=== PATIENT | male | born 1945 | race Caucasian/White ===

== ENCOUNTER 2025-04-16 10:14 | Inpatient (IN) | payer MEDICARE, BC ==
[~2025-04-16] VITALS: Ht 170.2 cm; Wt 63.5 kg
[2025-04-16] MEDS: IV NS 0.9% 1,000 ML BAG IV ONE (10:34)
[2025-04-16 10:50] LABS: PLATELET COUNT (AUTO) 302 K/uL (150-450); RED BLOOD CELL COUNT(AUTO) 5.21 MIL/uL (4.5-6.0); RED CELL DISTRIBUTION WIDTH 13.5 % (11.5-15.0); WHITE BLOOD COUNT (AUTO) 11.8 K/uL (4.3-11.0)
[2025-04-16 10:59] LABS: INR 0.94 (0.91-1.10)
[2025-04-16 11:00] LABS: SERUM AMMONIA 19 umol/L (11-32)
[2025-04-16 11:01] LABS: CALCIUM, SERUM 8.5 mg/dL (8.5-10.1); CREATININE 1.0 mg/dL (0.6-1.3); SODIUM SERUM 133 mmol/L (136-145); UREA NITROGEN, BLOOD 17 mg/dL (7-18)
[2025-04-16 11:07] LABS: ALCOHOL, BLOOD 295 mg/dL (0-10); ASPARTATE AMINOTRANSFERASE 41 U/L (15-37); TOTAL PROTEIN, SERUM 7.3 g/dL (6.4-8.2)
[2025-04-16 11:07] LABS: APPEARANCE,URINE CLEAR (CLEAR); BLOOD, URINE TRACE-INTA Ery/uL (NEGATIVE); LEUKOCYTE ESTERASE ,URINE NEGATIVE (NEGATIVE); NITRITE, URINE NEGATIVE (NEGATIVE); UGLUCOSE NEGATIVE (NEGATIVE)
[2025-04-16 11:11] LABS: ADD URINE CULTURE NO; SQUAMOUS EPITHELIAL CELL,UR Moderate /HPF (None Seen)
[2025-04-16 11:17] LABS: AMPHETAMINE, URINE NEGATIVE (NEGATIVE); BARBITURATE, URINE NEGATIVE (NEGATIVE); BENZODIAZEPINE, URINE NEGATIVE (NEGATIVE); CANNABINOID, URINE NEGATIVE (NEGATIVE); COCCAINE, URINE NEGATIVE (NEGATIVE); OPIATE, URINE NEGATIVE (NEGATIVE)
[2025-04-16] MEDS: HALOPERIDOL LACTATE INJ 5 MG/ML VIAL IM ONE (11:46)
[2025-04-16] MEDS ORDERED: HALOPERIDOL LACTATE INJ 5 MG/ML VIAL ONE (11:46)
[2025-04-16] MEDS ORDERED: LORAZEPAM INJ 2 MG/ML VIAL ONE (12:04)
[2025-04-16] MEDS: LORAZEPAM INJ 2 MG/ML VIAL IM ONE (12:07)
[2025-04-16] MEDS ORDERED: MAG HYDROX/AL HYDROX/SIMETH 30 ML UDC PO PRN (12:30)
[2025-04-16] MEDS ORDERED: Z GUARD REMEDY 4 OZ OINT TP PRN (12:30)
[2025-04-16] MEDS ORDERED: LORAZEPAM INJ 2 MG/ML VIAL IM PRN (12:30)
[2025-04-16] MEDS ORDERED: HALOPERIDOL LACTATE INJ 5 MG/ML VIAL IM ONE (12:30)
[2025-04-16] MEDS ORDERED: MAGNESIUM HYDROXIDE 30 ML UDC PO PRN (12:30)
[2025-04-16] MEDS: CHLORDIAZEPOXIDE HCL 25 MG CAPSULE PO SCH (13:00)
[2025-04-16] MEDS ORDERED: METF-881 PO (14:37)
[2025-04-16] MEDS ORDERED: ROSU10TA29 PO (14:37)
[2025-04-16] MEDS ORDERED: MEMA10TA56 PO (14:37)
[2025-04-16] MEDS ORDERED: FAMO40TA7 PO (14:37)
[2025-04-16] MEDS ORDERED: DULO20CA19 PO (14:37)
[2025-04-16] MEDS ORDERED: ESCI20TA PO (14:37)
[2025-04-16] MEDS ORDERED: MELA2.5T PO (14:37)
[2025-04-16] MEDS ORDERED: IBUP-2413 PO (14:37)
[2025-04-16 16:00] VITALS: BP 109/58; TEMP 98.6; O2SAT 97
[2025-04-16] MEDS: IV NS 0.9% 1,000 ML IV PRN (16:17)
[2025-04-16] MEDS ORDERED: FAMOTIDINE (20 MG) 20 MG TABLET PO PRN (18:30)
[2025-04-16 19:16] LABS: LACTIC ACID 7.7 mmol/L (0.4-2.0)
[2025-04-16] MEDS: ONDANSETRON HCL/PF 4 MG/2 ML VIAL IVP PRN (19:28)
[2025-04-16 20:00] VITALS: BP 131/61; TEMP 98.1; O2SAT 97
[2025-04-16] MEDS: ATORVASTATIN 40 MG TABLET PO SCH (21:07)
[2025-04-16] MEDS: ONDANSETRON HCL/PF 4 MG/2 ML VIAL IV ONE (21:07)
[2025-04-16] MEDS: TRAZODONE 50 MG TABLET PO ONE (21:07)
[2025-04-16] MEDS ORDERED: MELATONIN 2.5 MG PO SCH (22:00)
[2025-04-17] VITALS: BP 108/54; TEMP 100; O2SAT 96
[2025-04-17] MEDS: ACETAMINOPHEN 325 MG TABLET PO PRN (01:05)
[2025-04-17 04:00] VITALS: BP 115/64; TEMP 98.8; O2SAT 96
[2025-04-17 07:07] LABS: PLATELET COUNT (AUTO) 220 K/uL (150-450); RED BLOOD CELL COUNT(AUTO) 4.39 MIL/uL (4.5-6.0); RED CELL DISTRIBUTION WIDTH 13.0 % (11.5-15.0); WHITE BLOOD COUNT (AUTO) 5.3 K/uL (4.3-11.0)
[2025-04-17 07:17] LABS: ASPARTATE AMINOTRANSFERASE 32.0 U/L (15-37); CALCIUM, SERUM 8.0 mg/dL (8.5-10.1); CREATININE 0.9 mg/dL (0.6-1.3); PHOSPHORUS 2.9 mg/dL (2.5-4.9); SODIUM SERUM 141.0 mmol/L (136-145); TOTAL PROTEIN, SERUM 5.5 g/dL (6.4-8.2); UREA NITROGEN, BLOOD 14.0 mg/dL (7-18)
[2025-04-17 08:00] VITALS: BP 114/82; TEMP 98.1; O2SAT 99
[2025-04-17] MEDS: PANTOPRAZOLE 40 MG VIAL IV SCH (09:17)
[2025-04-17] MEDS: ESCITALOPRAM OXALATE (10 MG) 10 MG TABLET PO SCH (09:17)
[2025-04-17] MEDS: MEMANTINE HCL 5 MG TABLET PO SCH (09:17)
[2025-04-17] MEDS: DULOXETINE HCL 20 MG CAPSULE.DR PO SCH (09:17)
[2025-04-17 16:00] VITALS: BP 129/57; TEMP 98.2; O2SAT 96
[2025-04-17 20:00] VITALS: BP 116/59; TEMP 97.9; O2SAT 96
[2025-04-18] VITALS: BP 128/61; TEMP 97.6; O2SAT 95
[2025-04-18 05:00] VITALS: BP 137/58; TEMP 97.9; O2SAT 94
[2025-04-18 08:00] VITALS: BP 145/74; TEMP 98.1; O2SAT 99
[2025-04-18] MEDS: PANTOPRAZOLE 40 MG TABLET.DR PO SCH (09:33)
[2025-04-18 16:00] VITALS: BP 129/73; TEMP 98.2; O2SAT 99
[2025-04-18 20:00] VITALS: BP 139/75; TEMP 97.5; O2SAT 99
[2025-04-19] MEDS: TEMAZEPAM 15 MG CAPSULE PO PRN (00:23)
[2025-04-19 20:00] VITALS: BP 153/79; TEMP 98.2; O2SAT 99
[2025-04-20 08:26] VITALS: BP 134/78; TEMP 97.5; O2SAT 98
[2025-04-20] MEDS ORDERED: CHLORDIAZEPOXIDE HCL 25 MG CAPSULE PO PRN (10:00)
[2025-04-20 13:30] VITALS: BP_SYST 125; BP_SYST 145; BP_SYST 150; BP_DIAS 69; BP_DIAS 76
[2025-04-20 20:00] VITALS: BP 112/65; TEMP 97.9; O2SAT 97
[2025-04-20] MEDS: AMITRIPTYLINE HCL 25 MG TABLET PO PRN (22:40)
[2025-04-21 06:00] VITALS: BP_SYST 109; BP_SYST 116; BP_SYST 123; BP_DIAS 58; BP_DIAS 74; BP_DIAS 87; TEMP 97.9; O2SAT 98
[2025-04-21 06:50] LABS: CALCIUM, SERUM 9.0 mg/dL (8.5-10.1); CREATININE 0.8 mg/dL (0.6-1.3); SODIUM SERUM 145.0 mmol/L (136-145); UREA NITROGEN, BLOOD 21.0 mg/dL (7-18)
[2025-04-21 07:30] VITALS: BP 138/69; TEMP 97.5; O2SAT 97
[2025-04-21] MEDS: VENLAFAXINE XR 37.5 MG CAP.SR.24H PO SCH (08:20)
[2025-04-21 12:39] VITALS: BP_SYST 118; BP_SYST 119; BP_SYST 121; BP_DIAS 60; BP_DIAS 67; BP_DIAS 74; TEMP 97.5
[2025-04-21] MEDS: MECLIZINE HCL 25 MG TABLET PO PRN (15:20)
[2025-04-21 16:00] VITALS: BP 114/69; TEMP 98.2; O2SAT 96
[2025-04-21 16:04] VITALS: BP 114/69; TEMP 98.2; O2SAT 96
[2025-04-21 20:00] VITALS: BP 114/58; TEMP 97.5; O2SAT 95
[2025-04-22 07:30] VITALS: BP 130/65; TEMP 97.3; O2SAT 98
== END 2025-04-22 18:05 | disposition home or self-care (01) | DRG 896 ==
LOC: ER 10:21 → TELE 13:54 → MED 04-18 09:02
PROVIDERS: ADMIT Nurse Practitioner Acute Care; ATTEND Nurse Practitioner Acute Care
DX: F10.129 Alcohol abuse with intoxication, unspecified (principal); G92.8 Other toxic encephalopathy; E87.1 Hypo-osmolality and hyponatremia; E87.20 Acidosis, unspecified; F33.3 Major depressive disorder, recurrent, severe with psychotic symptoms; F03.93 Unspecified dementia, unspecified severity, with mood disturbance; Y90.8 Blood alcohol level of 240 mg/100 ml or more; D72.829 Elevated white blood cell count, unspecified; E11.9 Type 2 diabetes mellitus without complications; E78.5 Hyperlipidemia, unspecified; I10 Essential (primary) hypertension; Z79.84 Long term (current) use of oral hypoglycemic drugs; Z79.899 Other long term (current) drug therapy
CPT/HCPCS: 36415; 70450-TC; 71045-TC; 72170-TC; 80048-TC; 80053-TC; 80076-TC; 81001; 82140-TC; 82550-TC; 82962-TC; 83605-TC; 83735-TC; 84100-TC; 84443-TC; 85025-TC; 85730-TC; 97110-TC; 97116-TC; 97164; 97530-TC; A4223; G0378; G0480; J1630; J2060; J2405; J2470; J7030; J8597